=== PATIENT | male | born 1990 | race Caucasian/White ===

== ENCOUNTER 2023-07-23 09:46 | Inpatient (IN) | payer MEDICAID ==
[~2023-07-23] VITALS: Ht 172.7 cm; Wt 68.0 kg
[2023-07-23] MEDS ORDERED: normal saline 1000ML IV soln IVB ONE ×2 (10:00→12:35)
--- NOTE | 2023-07-23 10:15 | NUR ---
Patient refused lab draw, submit urine sample, refused IVF NS bolus, and wanted to leave against medical advice. Dr. Rao notified about this. Explained to patient that he will need to sign an AMA form if he choose to leave and that his peripheral IV need to be out if he leaves
--- NOTE | 2023-07-23 10:48 | NUR ---
Patient decided to stay but did not want IVF or blood draw
[2023-07-23 11:30] LABS: BASOPHILS % (AUTO) 0.2 % (0-1); EOSINOPHILS % (AUTO) 0.1 % (0-6); HEMATOCRIT 43.4 % (42.0-52.0); HEMOGLOBIN 14.3 g/dl (14.0-17.9); LYMPHOCYTES # (AUTO) 0.6 X10'3 (1.1-4.8); LYMPHOCYTES % (AUTO) 2.2 % (21-51); MEAN CORPUSCULAR HGB CONC 33.1 g/dL (33.0-36.5); MEAN CORPUSCULAR VOLUME 96.9 FL (78-98); MONOCYTES # (AUTO) 2.1 X10'3 (0-0.9); MONOCYTES % (AUTO) 8.4 % (2-12); NEUTROPHILS # (AUTO) 22.3 X10'3 (1.8-7.7); NEUTROPHILS % (AUTO) 89.1 % (42-75); PLATELET COUNT 229 X10'3 (140-440); RED BLOOD COUNT 4.48 X10'6 (4.70-6.10); RED CELL DISTRIBUTION WIDTH 14.4 % (11.5-14.5)
[2023-07-23 11:42] LABS: ALANINE AMINOTRANSFERASE 133 U/L (12-78); ALBUMIN 3.9 G/DL (3.4-5.0); ALBUMIN/GLOBULIN RATIO 1.1 (1.1-1.5); ALKALINE PHOSPHATASE 54 IU/L (46-116); ANION GAP 5 (8-16); ASPARTATE AMINO TRANSFERASE 57 U/L (10-37); BILIRUBIN,TOTAL 0.3 MG/DL (0.1-1.0); BLOOD UREA NITROGEN 16 MG/DL (7-18); BUN/CREATININE RATIO 21.1 (10.0-20.0); CALCIUM 8.5 MG/DL (8.5-10.1); CHLORIDE 103 MMOL/L (99-107); CREATININE 0.76 MG/DL (0.60-1.10); GLUCOSE 113 MG/DL (70-104); POTASSIUM 3.8 MMOL/L (3.5-5.1); SODIUM 137 MMOL/L (135-145); TOTAL CARBON DIOXIDE 29.5 MMOL/L (24-32); TOTAL PROTEIN 7.5 G/DL (6.4-8.2); eCRCL 132 ML/MIN; eGFR > 90 ML/MIN
[2023-07-23 11:46] LABS: WHITE BLOOD COUNT 25.1 X10'3 (4.5-11.0)
[2023-07-23 11:48] LABS: ETHANOL < 10 MG/DL (<10)
[2023-07-23 12:21] LABS: TOTAL CELLS COUNTED 100
[2023-07-23 12:23] LABS: PLATELET ESTIMATE NORMAL
[2023-07-23] MEDS ORDERED: aspirin 81mg tab.chew PO ONE (12:35)
[2023-07-23 13:07] LABS: APTT 27 SECONDS (22-32); PROTHROMBIN TIME 10.9 SECONDS (9.0-12.0)
[2023-07-23 13:08] LABS: MAGNESIUM 2.5 MG/DL (1.5-2.4)
--- NOTE | 2023-07-23 13:10 | NUR ---
Pt has refused IV fluids. Pt provided with oral fluids and food.
[2023-07-23] MEDS ORDERED: NO HOME MEDS (13:43)
--- NOTE | 2023-07-23 14:16 | NUR ---
Marsha pt sister called and informed of pt's plan of care. phone number is [phone]
--- NOTE | 2023-07-23 15:55 | NUR ---
Pt up to use the restroom. Provided with urine cup however he states he "dropped it in the toilet." No urine sample obtained.
[2023-07-23] MEDS ORDERED: magnesium Cl slow-release 64mg tablet PO PRN (16:00)
[2023-07-23] MEDS ORDERED: magnesium 4gm in 100ml NS 100 ML IV PRN (16:00)
[2023-07-23] MEDS ORDERED: mag hydrox/Alum hydrox/simeth 30ml oral suspension PO PRN (16:00)
[2023-07-23] MEDS: normal saline 1000ml 1,000 ML IV SCH (16:00)
[2023-07-23] MEDS ORDERED: acetaminophen 325mg tablet PO PRN (16:00)
[2023-07-23] MEDS ORDERED: magnesium 2GM in 50ml NS 50 ML IV PRN (16:00)
[2023-07-23] MEDS ORDERED: potassium Cl 40MEQ/1/2NS 520ml 520 ML IV PRN (16:00)
[2023-07-23] MEDS ORDERED: magnesium hydroxide 30ml (MOM) UD suspension PO PRN (16:00)
[2023-07-23] MEDS ORDERED: ondansetron/PF 4mg/2ml inj IV PRN (16:00)
[2023-07-23] MEDS ORDERED: potassium Cl 20 mEq SR tablet PO PRN ×2 (16:00)
--- NOTE | 2023-07-23 19:04 | NUR ---
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
[2023-07-23] MEDS ORDERED: docusate sod 100mg capsule PO SCH (20:00)
[2023-07-23] MEDS ORDERED: heparin, porcine 5000 units/ml vial SQ SCH (20:00)
[2023-07-23] MEDS ORDERED: K and/or MAG REPLACEMENT MC SCH (20:00)
[2023-07-24] MEDS: normal saline 1000ml 1,000 ML IV SCH (02:00)
--- NOTE | 2023-07-24 02:22 | NUR ---
Pt refuses IV NS. Ample ice water available at bedside.
[2023-07-24 04:36] LABS: BASOPHILS % (AUTO) 0.4 % (0-1); EOSINOPHILS % (AUTO) 0.6 % (0-6); HEMOGLOBIN 13.4 g/dl (14.0-17.9); LYMPHOCYTES # (AUTO) 1.7 X10'3 (1.1-4.8); LYMPHOCYTES % (AUTO) 22.1 % (21-51); MEAN CORPUSCULAR HEMOGLOBIN 32.5 PG (27.0-31.0); MEAN CORPUSCULAR HGB CONC 33.6 g/dL (33.0-36.5); MEAN CORPUSCULAR VOLUME 96.5 FL (78-98); MONOCYTES # (AUTO) 0.9 X10'3 (0-0.9); NEUTROPHILS # (AUTO) 4.9 X10'3 (1.8-7.7); NEUTROPHILS % (AUTO) 64.9 % (42-75); PLATELET COUNT 197 X10'3 (140-440); RED BLOOD COUNT 4.14 X10'6 (4.70-6.10); RED CELL DISTRIBUTION WIDTH 14.2 % (11.5-14.5); WHITE BLOOD COUNT 7.5 X10'3 (4.5-11.0)
[2023-07-24 04:53] LABS: ALANINE AMINOTRANSFERASE 133 U/L (12-78); ALBUMIN 3.1 G/DL (3.4-5.0); ALBUMIN/GLOBULIN RATIO 1.1 (1.1-1.5); ALKALINE PHOSPHATASE 41 IU/L (46-116); ANION GAP 4 (8-16); ASPARTATE AMINO TRANSFERASE 73 U/L (10-37); BILIRUBIN,TOTAL 0.4 MG/DL (0.1-1.0); BLOOD UREA NITROGEN 12 MG/DL (7-18); BUN/CREATININE RATIO 18.8 (10.0-20.0); CALCIUM 8.3 MG/DL (8.5-10.1); CHLORIDE 105 MMOL/L (99-107); CREATININE 0.64 MG/DL (0.60-1.10); GLUCOSE 79 MG/DL (70-104); POTASSIUM 3.6 MMOL/L (3.5-5.1); SODIUM 137 MMOL/L (135-145); TOTAL CARBON DIOXIDE 28.1 MMOL/L (24-32); eCRCL 156 ML/MIN; eGFR > 90 ML/MIN
--- NOTE | 2023-07-24 07:01 | NUR ---
Patient was reminded that we still need urine sample that has been ordered since yesterday. Patient replied to me "okay!"
--- NOTE | 2023-07-24 07:05 | NUR ---
Patient in room ED [id number]. I have received report from GABI MAYS, and had the opportunity to ask questions and assume patient care.
[2023-07-24 07:22] VITALS: BP 122/66; PULSE 63; RESP 16; TEMP 97.8; O2SAT 97
[2023-07-24 08:00] VITALS: RESP 16; O2SAT 97
[2023-07-24] MEDS ORDERED: CefTRIAXone/D5W-Rocephin 1gm 50 ML IV SCH (08:00)
--- NOTE | 2023-07-24 10:06 | NUR ---
PT AOX4. PT IS RESISTANT TO CARE AND ANXIOUS TO BE DISCHARGED. PT REPORTS HE FOUND SOME POT AT A [employer] AND SMOKED IT. HE REPORTS THAT HE IMMEDIATELY FELT NAUSEAS AND CALLED FOR HIS BROTHER TO GET HIM. HE REPORTS ALL ELSE WAS A BLUR UNTIL HE "WOKE UP IN THE HOSPITAL". PT WANTS PAPERWORK TO BE EXCUSED FOR WORK.
--- NOTE | 2023-07-24 10:24 | NUR ---
PT STABLE FOR DISCHARGE PER MD.PT EDUCATED ON SMOKING AND REC DRUG CESSATION. PIV REMOVED WITH TIP INTACT. PT AMBULATED OFF THE UNIT WITH FRIENDS. PT DISCHARGED TO HOME.
[2023-07-24 10:29] LABS: BILIRUBIN,URINE NEGATIVE (Neg); CLARITY,URINE CLEAR (Clear); COLOR,URINE YELLOW (Yellow); GLUCOSE, URINE NEGATIVE (Neg); KETONES,URINE 15 mg/dl (Neg); LEUKOCYTE ESTERASE ,URINE NEGATIVE (Neg); NITRITES, URINE NEGATIVE (Neg); OCCULT BLOOD,URINE NEGATIVE (Neg); PH,URINE 6.5 (4.8-8.0); PROTEIN,URINE NEGATIVE (Neg); UROBILINOGEN,URINE 0.2 E.U/dL (0.2-1.0)
[2023-07-24 10:35] LABS: UA COLLECTION TYPE CLN CATCH MIDSTREAM
[2023-07-24 10:46] LABS: URINE AMPHETAMINE SCREEN NEGATIVE (Neg); URINE BARBITUATE SCREEN NEGATIVE (Neg); URINE BENZODIAZEPINES SCREEN NEGATIVE (Neg); URINE CANNABINOID SCREEN POSITIVE (Neg); URINE COCAINE SCREEN POSITIVE (Neg); URINE METHADONE SCREEN NEGATIVE (Neg); URINE OPIATE SCREEN NEGATIVE (Neg); URINE PHENCYCLIDINE SCREEN NEGATIVE (Neg)
== END 2023-07-24 12:13 | disposition home or self-care (01) | DRG 133 ==
LOC: ER 09:47 → ED HOLD 16:10 → PCU 3S 07-24 07:27
PROVIDERS: ADMIT Internal Medicine; ATTEND Internal Medicine
DX: J96.00 Acute respiratory failure, unspecified whether with hypoxia or hypercapnia (principal); I21.4 Non-ST elevation (NSTEMI) myocardial infarction; G93.40 Encephalopathy, unspecified; R55 Syncope and collapse; D72.829 Elevated white blood cell count, unspecified; F17.210 Nicotine dependence, cigarettes, uncomplicated; F12.10 Cannabis abuse, uncomplicated
CPT/HCPCS: 36415; 71045; 80053; 80305; 80320; 81003; 83605; 83735; 83880; 84484; 85007; 85025; 85610; 85730; 87040; 87077; 87081; 87186; 93005; 99285; G0378

== ENCOUNTER 2023-09-29 11:23 | Emergency (ER) | payer MEDICAID ==
[~2023-09-29] VITALS: Ht 172.7 cm; Wt 67.4 kg
[~2023-09-29 11:23] MED LIST: NO HOME MEDS
[2023-09-29 11:29] VITALS: BP 107/66; PULSE 73; RESP 16; TEMP 98.6; O2SAT 98
[2023-09-29] MEDS ORDERED: CEPH-585 PO (12:03)
[2023-09-29] MEDS ORDERED: SULF1TAB49 PO (12:03)
[2023-09-29] MEDS ORDERED: NAPR-56 PO (12:03)
== END 2023-09-29 12:11 | disposition home or self-care (01) ==
LOC: ER 11:23
DX: L03.116 Cellulitis of left lower limb (principal)
CPT/HCPCS: 99283

== ENCOUNTER 2023-10-30 06:36 | Emergency (ER) | payer MEDICAID ==
[~2023-10-30] VITALS: Ht 180.3 cm; Wt 70.5 kg
[~2023-10-30 06:36] MED LIST changes: +CEPH-585 PO; +NAPR-56 PO
[2023-10-30 06:43] VITALS: TEMP 98.4
[2023-10-30] MEDS ORDERED: DOXY150T8 PO (07:24)
[2023-10-30 07:39] VITALS: BP 129/85; PULSE 101; RESP 16; O2SAT 98
== END 2023-10-30 07:44 | disposition home or self-care (01) ==
LOC: ER 06:36
DX: L03.116 Cellulitis of left lower limb (principal)
CPT/HCPCS: 99283